=== PATIENT | male | born 1960 ===

== ENCOUNTER 2024-03-15 11:19 | Day surgery (SDC) | payer OTHER ==
[2024-03-15] VITALS (11 sets, daily range): BP systolic 120–169; BP diastolic 59–90; PULSE 52–79; TEMP 98.4–98.6
[~2024-03-15] VITALS: Ht 182.9 cm; Wt 122.4 kg
[~2024-03-15 11:19] MED LIST: LR 1,000 ML IV SCH
[2024-03-15] MEDS ORDERED: fentaNYL 50 MCG/ML 2 ML VIAL ONE ×2 (13:19→15:44)
[2024-03-15] MEDS ORDERED: Midazolam 2 MG/2 ML VIAL ONE (13:19)
[2024-03-15] MEDS ORDERED: OZEMPIC1 MG/0.71 SQ (14:00)
[2024-03-15] MEDS ORDERED: INSULIN GL100 UNIT/2 SQ (14:02)
[2024-03-15] MEDS ORDERED: GLUCOPHAGE500 MG/TAB PO (14:02)
[2024-03-15] MEDS ORDERED: XARELTO20 MG PO (14:04)
[2024-03-15] MEDS ORDERED: JARDIANCE25 (14:07)
[2024-03-15] MEDS ORDERED: LASIX 40MG TABL40 MG PO (14:08)
[2024-03-15] MEDS ORDERED: PROSCAR 5MG5 MG PO (14:08)
[2024-03-15] MEDS ORDERED: ASPIRIN E.C. 8181 MG PO (14:09)
[2024-03-15] MEDS ORDERED: Ondansetron 4 MG/2 ML VIAL IV PRN ×2 (15:00→16:00)
[2024-03-15] MEDS ORDERED: HYDROmorphone 1 MG/1 ML SYRINGE [PACU/SDC ONLY] IV PRN (15:00)
[2024-03-15] MEDS ORDERED: fentaNYL 50 MCG/ML 1 ML SYRINGE/VIAL [PACU/SDC ONLY] IV PRN (15:00)
[2024-03-15] MEDS ORDERED: Hyoscyamine 0.125 MG Sublingual TAB SL PRN (16:00)
[2024-03-15] MEDS ORDERED: 1/2 NS & 20 mEq KCl 1,000 ML IV SCH (16:00)
[2024-03-15] MEDS ORDERED: Magnes Hydrox (MOM) 80 MG/ML 30 ML CUP PO PRN (16:00)
[2024-03-15] MEDS ORDERED: NS Irrig Soln 3000 ML SOLN IR PRN (16:00)
[2024-03-15] MEDS ORDERED: Acetaminophen 325 MG TAB PO PRN (16:00)
[2024-03-15] MEDS ORDERED: Morphine 4 MG/ML VIAL IV PRN (16:00)
[2024-03-15] MEDS ORDERED: Tranexamic Acid 1,000 MG/10 ML VIAL ONE (16:03)
--- NOTE | 2024-03-15 16:58 | NUR ---
Patient post op to room 343. Report from Janette pacu nurse. Patient awake and alert. Swift to DD with CBI to slow drip clear pale yellow output. IVF as ordered. Scds Ble. Vss on room air. Dinner at bedside, tolerating without nausea. Blood sugar stablized at 89. Will monitor
[2024-03-15] MEDS ORDERED: metFORMIN 500 MG TAB PO SCH (17:00)
--- NOTE | 2024-03-15 18:31 | NUR ---
patient continues to do well post op. spinal starting to wear off. He did well with dinner, denies nausea. scds ble. iv to int. vss on room air. will report off to nighturse
[2024-03-15] MEDS ORDERED: Docusate Sodium 100 MG CAP PO SCH (21:00)
[2024-03-15] MEDS ORDERED: Nystatin 100,000 Units/GM Ointment 15 GM TUBE TP SCH (21:00)
[2024-03-15] MEDS ORDERED: Finasteride 5 MG TAB PO SCH (21:00)
--- NOTE | 2024-03-16 01:26 | NUR ---
THE PATIENTS CBI WAS NO LONGER FLOWING. THE CATHETER HAD TO BE IRRIGATED TO OBTAIN PATENCY. ONE VERY SMALL BLOOD CLOT AND A VERY LARGE PIECE OF CARTILAGE WAS NOTED. AFTER IRRIGATING TIMES TWO PATENCY WAS OBTAINED AND THE FLOW COLOR WAS CLEAR. WILL MONITOR.
--- NOTE | 2024-03-16 01:30 | NUR ---
AT THIS TIME THE PATIENT IS AWAKE AND WATCHING TV. NO DISCOMFORT REPORTED. THE PATIENT ASKED FOR HORACIO CRACKERS, DIET PEPSI AND A WARM BLANK ALL OF WHICH WERE PROVIDED. NO OTHER NEEDS AT THIS TIME. CALL LIGHT AND PERSONAL BELONGINGS WITHIN REACH.
[2024-03-16 04:15] VITALS: BP 164/84; PULSE 62; TEMP 98.5
[2024-03-16 05:23] VITALS: BP_SYST 164
[2024-03-16 07:42] VITALS: BP 170/88; PULSE 68; TEMP 97.6
--- NOTE | 2024-03-16 08:06 | NUR ---
THE PATIENT RESTED ALL NIGHT IN BED BUT DID NOT SLEEP. THE PATIENT UTILIZED PRN TYLENOL FOR BACK PAIN DURING THE NIGHT. THE PATIENT DENIED OTHER NEEDS OR DISCOMFORT. SEE THE CBI WORKSHORT FOR DETAILS.
[2024-03-16 08:33] VITALS: BP_SYST 170
--- NOTE | 2024-03-16 08:41 | NUR ---
Patient resting in bed. He did well with breakfast. anticipating rodriguez removal and discharge home today. Cbi to very slow drip with light pink output. no clots visulized. Scds ble. Report back pain from the bed. Tyelnol PRN given offered to assist patient to chair, but not wanting to get up yet. Alfredo breaux
[2024-03-16] MEDS ORDERED: Furosemide 40 MG TAB PO SCH (09:00)
--- NOTE | 2024-03-16 09:15 | NUR ---
ROUNDED. ORDERS OBTAINED. ROGERS PRIMED PULLED. PATIENT TOLERATED WELL. 6 CUP ROUTINE STARTED
--- NOTE | 2024-03-16 10:46 | NUR ---
SW met with patient to complete intake and dischage planning. Patient reports that he resides in [place]. Patient PCP is Dr. Teresa in [place], and pharmacy of choice is [facility]. Patient reports that [facility] is Rubin Kemp ([phone]) and has a DPOA on file with legal. Patient reports that he is independent with ADLs and reports that he is currently uses insulin injectable meds, glucometer and occassionally uses his CPAP machine. Patient is anticipating discharge back to his residence, pending any further medical recommendations.
[2024-03-16 11:06] VITALS: BP 167/91; PULSE 78; TEMP 97.6
--- NOTE | 2024-03-16 12:00 | NUR ---
Patient blood sugar elevated, called and made aware, patient request to use home insulin pen prior to going home for elevated sugar. Orders obtained. Six cup routine completed and discharge orders obtained. He is aware of one clot voided. Alfredo breaux
--- NOTE | 2024-03-16 12:02 | NUR ---
Data: Patient accepted spiritual care visit offered during Tail Dogger rounds. Patient processed some of his concerns and reviewed aspects of his life. SHAY Boyd visited during Tail Dogger visit. Assessment: Patient is reflecting upon his theology based upon certain monzon events in his life. Plan of Care: With Patient's permission, Tail Dogger shared with SHAY Boyd about Patient's food insecurities at home. Tail Dogger provided supportive listening, pastoral counseling, and prayer. Chaplains will remain available as needed/requested while Patient is admitted to this hospital.
--- NOTE | 2024-03-16 13:16 | NUR ---
SW received social service request from [employer] Supervisor to assist patient with food resources. Patient is from [place] and LAUREN informed [employer] Supervisor that she would gather some information off-line since the resource guide does not cover that area. Glazier Supervisor offered to assist, and provide several agencies in that area to SW to provide to patient. LAUREN met with patient and talked with him about several of the agencies and community resources, and provided information on food assistance application with DCF. No further needs at this time- patient is set to discharge back to his residence in [place].
[2024-03-16 13:47] VITALS: BP_SYST 167
--- NOTE | 2024-03-16 15:29 | NUR ---
PATIENT GIVEN ALL DISCHARGE EDUCATION. int dc. WE REVIEWED POST OP APPT SCHEDULED. MEDICATION LIST REVIEWED, AWARE TO CONTINUE BABY ASA AND HOLD XARELTO FOR ONE WEEK. ACTIVITY AND DIET RESTRICTIONS REVIEWED. CALL WITH QUESTIONS AND OR CONCERNS. PATIENT DENIES QUESTION OR CONCERNS AT THIS TIME, HIS PARENTS PICKING HIM UP.
== END 2024-03-16 15:33 | disposition home or self-care (01) ==
LOC: SDCO 11:19 → SURG 16:10 → SDCO 03-16 15:33 → SURG 03-16 15:33
DX: N40.1 Benign prostatic hyperplasia with lower urinary tract symptoms (principal); R39.12 Poor urinary stream; R35.1 Nocturia; R39.14 Feeling of incomplete bladder emptying; G95.89 Other specified diseases of spinal cord; R31.0 Gross hematuria; Z86.718 Personal history of other venous thrombosis and embolism; Z85.46 Personal history of malignant neoplasm of prostate; Z79.01 Long term (current) use of anticoagulants
CPT/HCPCS: OP; J0665; J0690; J2250; J2704; J3010; J7120